=== PATIENT | male | born 1950 | race Caucasian/White ===

== ENCOUNTER 2020-01-06 10:44 | Outpatient (REF) | payer OTHER, SELFPAY ==
[2020-01-06 12:40] LABS: Hemoglobin 12.7 g/dl (14.0-18.0)
[2020-01-06 12:41] LABS: Hematocrit 37.7 % (42-52)
[2020-01-06 13:11] LABS: Albumin Level 3.6 g/dL (3.5-5.0); Calcium 9.1 mg/dL (8.4-10.2)
[2020-01-06 13:41] LABS: Prostate Specific Antigen 0.46 ng/mL (<0.05-4.0)
[2020-01-07 21:42] LABS: Sex Hormone Binding Globulin 147 nmol/L (22-77)
[2020-01-08 12:02] LABS: Calcium (PTHI) 9.4 mg/dL (8.6-10.3); PTHI 29 pg/mL (14-64)
[2020-01-12 18:12] LABS: Testosterone, Free 76.8 pg/mL (30.0-135.0); Testosterone, Total 1164 ng/dL (250-1100)
== END 2020-01-06 10:45 | disposition home or self-care (01) ==
LOC: HO.LAB 10:44
PROVIDERS: PCP Internal Medicine; Visit Provider Internal Medicine
DX: E23.0 Hypopituitarism (principal); E55.9 Vitamin D deficiency, unspecified; M81.0 Age-related osteoporosis without current pathological fracture
CPT/HCPCS: 36415; 82040; 82306; 82310; 83970; 84153; 84270; 84402; 84403; 85014; 85018

== ENCOUNTER → 2020-01-11 09:51 | Outpatient (BNVA) | payer OTHER, SELFPAY | PROVIDERS: PCP Internal Medicine; Referring Provider Internal Medicine; Visit Provider Internal Medicine | DX: Z76.89 Persons encountering health services in other specified circumstances (principal) ==

== ENCOUNTER → 2020-02-08 12:23 | Outpatient (BNVA) | payer OTHER, SELFPAY | PROVIDERS: PCP Internal Medicine; Visit Provider Internal Medicine | DX: Z13.89 Encounter for screening for other disorder (principal) ==

== ENCOUNTER → 2020-02-22 09:26 | Outpatient (BNVA) | payer OTHER, SELFPAY | PROVIDERS: PCP Internal Medicine; Visit Provider Internal Medicine | DX: Z13.89 Encounter for screening for other disorder (principal) ==

== ENCOUNTER 2020-03-25 11:15 | Outpatient (REF) | payer OTHER, SELFPAY ==
[2020-03-25 12:02] LABS: Hematocrit 40.9 % (42-52); Hemoglobin 13.4 g/dl (14.0-18.0)
[2020-03-25 12:29] LABS: Albumin Level 3.8 g/dL (3.5-5.0); Calcium 9.3 mg/dL (8.4-10.2); Cholesterol 171 mg/dL; Estimated Glomerular Filt Rate 53; HDL Cholesterol 66 mg/dL; LDL Cholesterol Calculated 63 mg/dl; Phosphorus 3.1 mg/dL (2.7-4.5); Triglycerides 210 mg/dL
[2020-03-25 12:50] LABS: Prostate Specific Antigen 0.66 ng/mL (<0.05-4.0); Vitamin D 25-OH Total 44.8 ng/mL (>30)
[2020-03-26 11:02] LABS: LDL Cholesterol Direct 72 mg/dL (<100)
[2020-03-28 17:43] LABS: Calcium (PTHI) 9.5 mg/dL (8.6-10.3); PTHI 53 pg/mL (14-64)
[2020-03-28 18:07] LABS: Sex Hormone Binding Globulin 160 nmol/L (22-77)
[2020-03-31 13:33] LABS: Testosterone, Free 96.7 pg/mL (30.0-135.0); Testosterone, Total 1444 ng/dL (250-1100)
== END 2020-03-25 11:16 | disposition home or self-care (01) ==
LOC: HO.LAB 11:15
PROVIDERS: PCP Internal Medicine; Visit Provider Internal Medicine
DX: M81.0 Age-related osteoporosis without current pathological fracture (principal); E23.0 Hypopituitarism; E55.9 Vitamin D deficiency, unspecified; Z12.5 Encounter for screening for malignant neoplasm of prostate
CPT/HCPCS: 36415; 80061; 82040; 82306; 82310; 82565; 83721; 83970; 84100; 84153; 84270; 84402; 84403; 85014; 85018

== ENCOUNTER → 2020-04-13 08:43 | Outpatient (BNVA) | payer OTHER, SELFPAY | PROVIDERS: PCP Internal Medicine; Visit Provider Internal Medicine ==

== ENCOUNTER 2020-05-13 08:03 | Outpatient (REF) | payer MEDICARE, MEDICAID, SELFPAY ==
--- NOTE | ~2020-05-13 | MM_ITS ---
EXAMINATION: BONE DENSITOMETRY CLINICAL INDICATION: Osteoporosis. COMPARISON: Baseline BD dated 05/22/2018. Lumbar radiographs 06/03/2018. TECHNIQUE: Using a [employer] DXA System (software version: 13.1) manufactured by [employer], dual-energy x-ray absorptiometry was performed of the lumbar spine and left hip. The images are of good technical quality. Summary results are attached. FINDINGS: AP SPINE L3-L4: The data for L1 and L2 are excluded due to vertebral compression fractures at these levels as seen on lumbar radiographs. Current: BMD 1.199 g/cm2, Z-score 0.7, T-score -0.3, normal, 17.7% increase from baseline (<5% change is not significant). Baseline: BMD 1.019 g/cm2. LEFT FEMUR, NECK: Current: BMD 0.617 g/cm2, Z-score -1.9, T-score -3.5, osteoporosis. Baseline: BMD 0.578 g/cm2. LEFT FEMUR, TOTAL: Current: BMD 0.695 g/cm2, Z-score -1.8, T-score -2.8, osteoporosis, 4.8% increase from baseline (<5% change is not significant). Baseline: BMD 0.663 g/cm2. IDENTIFIED RISK FACTORS: Height loss, alcohol (3 or more units per day), history of fracture (adult), osteoporosis, tobacco use (current smoker). HISTORY OF FRACTURE: Lumbar spine compression fractures. MEDICATIONS: Calcium, vitamin D. MM/XR DEXA axial skeleton IMPRESSION: 1. DIAGNOSIS: Severe osteoporosis based on the lowest T-score value of -3.5 in the femoral neck and history of lumbar compression fracture applying World Health Organization criteria. 2. 10-YEAR FRACTURE RISK PREDICTION, FRAX: Major osteoporotic fracture (clinical spine, forearm, hip or shoulder) 31.2%. Hip fracture 21.5%. 3. Treatment Recommendations: NOF guidelines recommend consideration for treatment in postmenopausal women and men age 50 and older presenting with the following: -A hip or vertebral (clinical or morphometric) fracture. -T-score less than or equal to -2.5 at the femoral neck or spine after appropriate evaluation to exclude secondary causes. -Low bone mass at the hip or spine and a 10-year fracture probability by FRAX of greater than or equal to 3% for hip fracture or greater than or equal to 20% for major osteoporotic fracture based on the [place] adapted WHO algorithm. 4. Other Recommendations: All treatment decisions require clinical judgment and consideration of individual patient factors, including patient preferences, comorbidities, previous drug use, risk factors not captured in the FRAX model (e.g. frailty, falls, vitamin D deficiency, increased bone turnover, interval significant decline in bone density) and possible under or overestimation of fracture risk by FRAX. Additional medical evaluation for secondary cause of low bone mineral density may be appropriate. FUTURE SCAN RECOMMENDATION: People with diagnosed cases of osteoporosis or at high risk for fracture should have regular bone mineral density tests. For patients eligible for Medicare, routine testing is allowed once every 2 years. The testing frequency can be increased to one year for patients who have rapidly progressing disease, those who are receiving or discontinuing medical therapy to restore bone mass, or have additional risk factors.
== END 2020-05-13 08:04 | disposition home or self-care (01) ==
LOC: HO.MAMMO 08:03
PROVIDERS: Visit Provider Internal Medicine
DX: M81.0 Age-related osteoporosis without current pathological fracture (principal); Z79.899 Other long term (current) drug therapy; F17.200 Nicotine dependence, unspecified, uncomplicated
CPT/HCPCS: 77080

== ENCOUNTER → 2020-08-18 11:41 | Outpatient (BNVA) | payer MEDICARE, MEDICAID, SELFPAY | PROVIDERS: PCP Internal Medicine; Visit Provider Internal Medicine | DX: Z13.89 Encounter for screening for other disorder (principal) | CPT/HCPCS: Q3014 ==

== ENCOUNTER 2020-08-19 11:56 | Outpatient (REF) | payer MEDICARE, MEDICAID, SELFPAY ==
[2020-08-19 13:37] LABS: Hematocrit 38.4 % (42-52); Hemoglobin 12.7 g/dl (14.0-18.0)
[2020-08-19 14:06] LABS: Alanine Aminotransferase 40 U/L (0-40); Albumin Level 3.8 g/dL (3.5-5.0); Alkaline Phosphatase 173 U/L (39-117); Anion Gap 12 (12-20); Aspartate Amino Transferase 37 U/L (5-37); Bilirubin Total 0.9 mg/dL (0.0-1.0); Blood Urea Nitrogen 20 mg/dL (9-16); Calcium 9.5 mg/dL (8.4-10.2); Carbon Dioxide 28 mmol/L (22-29); Chloride 101 mmol/L (96-108); Estimated Glomerular Filt Rate > 60; Glucose Random 91 mg/dL (60-115); Phosphorus 2.5 mg/dL (2.7-4.5); Potassium 4.1 mmol/L (3.3-5.1); Sodium 137 mmol/L (135-145); Total Protein 8.2 g/dL (6.5-8.0)
[2020-08-19 14:31] LABS: Vitamin D 25-OH Total 43.8 ng/mL (>30)
[2020-08-19 15:02] LABS: Prostate Specific Antigen 0.52 ng/mL (<0.05-4.0)
[2020-08-23 08:53] LABS: Calcium (PTHI) 9.4 mg/dL (8.6-10.3); PTHI 41 pg/mL (14-64)
[2020-08-23 09:41] LABS: Sex Hormone Binding Globulin 168 nmol/L (22-77)
[2020-08-24 14:26] LABS: Testosterone, Free 74.6 pg/mL (30.0-135.0); Testosterone, Total 1165 ng/dL (250-1100)
== END 2020-08-19 11:57 | disposition home or self-care (01) ==
LOC: HO.LAB 11:56
PROVIDERS: PCP Internal Medicine; Visit Provider Internal Medicine
DX: E55.9 Vitamin D deficiency, unspecified (principal); M81.0 Age-related osteoporosis without current pathological fracture; E23.0 Hypopituitarism
CPT/HCPCS: 36415; 80053; 82306; 83970; 84100; 84153; 84270; 84402; 84403; 85014; 85018

== ENCOUNTER 2020-10-25 10:57 | Outpatient (REF) | payer MEDICARE, MEDICAID, SELFPAY ==
[2020-10-25 12:20] LABS: Alanine Aminotransferase 32 U/L (0-40); Albumin Level 3.6 g/dL (3.5-5.0); Alkaline Phosphatase 177 U/L (39-117); Anion Gap 13 (12-20); Aspartate Amino Transferase 30 U/L (5-37); Bilirubin Total 1.1 mg/dL (0.0-1.0); Blood Urea Nitrogen 18 mg/dL (9-16); Calcium 9.5 mg/dL (8.4-10.2); Carbon Dioxide 27 mmol/L (22-29); Chloride 101 mmol/L (96-108); Estimated Glomerular Filt Rate > 60; Glucose Random 91 mg/dL (60-115); Potassium 4.3 mmol/L (3.3-5.1); Sodium 137 mmol/L (135-145)
== END 2020-10-25 10:58 | disposition home or self-care (01) ==
LOC: HO.LAB 10:57
PROVIDERS: Visit Provider Internal Medicine
DX: M81.0 Age-related osteoporosis without current pathological fracture (principal)
CPT/HCPCS: 36415; 80053

== ENCOUNTER → 2020-10-27 11:11 | Outpatient (BNVA) | payer MEDICARE, MEDICAID, SELFPAY | PROVIDERS: PCP Obstetrics & Gynecology; Visit Provider Internal Medicine | CPT/HCPCS: Q3014 ==

== ENCOUNTER → 2021-05-04 11:52 | Outpatient (BNVA) | payer MEDICARE, MEDICAID, SELFPAY | PROVIDERS: PCP Obstetrics & Gynecology; Visit Provider Internal Medicine | DX: M81.0 Age-related osteoporosis without current pathological fracture (principal); E55.9 Vitamin D deficiency, unspecified; E23.0 Hypopituitarism; D89.2 Hypergammaglobulinemia, unspecified | CPT/HCPCS: Q3014 ==

== ENCOUNTER 2021-07-18 11:30 | Outpatient (REF) | payer MEDICARE, MEDICAID, SELFPAY ==
[2021-07-18 12:53] LABS: Hematocrit 38.3 % (42.0-52.0); Hemoglobin 12.3 g/dl (14.0-18.0)
[2021-07-18 13:36] LABS: Alanine Aminotransferase 38 U/L (0-40); Albumin Level 3.3 g/dL (3.5-5.0); Alkaline Phosphatase 233 U/L (39-117); Anion Gap 13 (12-20); Aspartate Amino Transferase 45 U/L (5-37); Bilirubin Total 1.1 mg/dL (0.0-1.0); Blood Urea Nitrogen 19 mg/dL (9-16); Calcium 9.3 mg/dL (8.4-10.2); Carbon Dioxide 26 mmol/L (22-29); Chloride 103 mmol/L (96-108); Cholesterol 198 mg/dL; Estimated Glomerular Filt Rate 58; Glucose Random 96 mg/dL (60-115); HDL Cholesterol 62 mg/dL; LDL Cholesterol Calculated 119 mg/dl; Phosphorus 3.5 mg/dL (2.7-4.5); Sodium 137 mmol/L (135-145); Total Protein 8.6 g/dL (6.5-8.0); Triglycerides 89 mg/dL
[2021-07-18 13:58] LABS: Prostate Specific Antigen 0.58 ng/mL (<0.05-4.0); Vitamin D 25-OH Total 43.3 ng/mL (>30)
[2021-07-19 05:07] LABS: Sex Hormone Binding Globulin 175 nmol/L (22-77)
[2021-07-19 07:01] LABS: LDL Cholesterol Direct 94 mg/dL (<100)
[2021-07-19 13:11] LABS: Calcium (PTHI) 9.3 mg/dL (8.6-10.3); PTHI 55 pg/mL (16-77)
[2021-07-26 13:12] LABS: Testosterone, Free 37.3 pg/mL (30.0-135.0); Testosterone, Total 956 ng/dL (250-1100)
== END 2021-07-18 11:31 | disposition home or self-care (01) ==
LOC: HO.LAB 11:30
PROVIDERS: PCP Internal Medicine; Visit Provider Internal Medicine
DX: Z12.5 Encounter for screening for malignant neoplasm of prostate (principal); M81.0 Age-related osteoporosis without current pathological fracture; E23.0 Hypopituitarism; E55.9 Vitamin D deficiency, unspecified
CPT/HCPCS: 36415; 80053; 80061; 82306; 83721; 83970; 84100; 84153; 84270; 84402; 84403; 85014; 85018

== ENCOUNTER → 2021-08-10 11:12 | Outpatient (BNVA) | payer MEDICARE, MEDICAID, SELFPAY | PROVIDERS: PCP Internal Medicine; Visit Provider Internal Medicine | DX: M81.0 Age-related osteoporosis without current pathological fracture (principal); E55.9 Vitamin D deficiency, unspecified; D89.2 Hypergammaglobulinemia, unspecified; E23.0 Hypopituitarism | CPT/HCPCS: Q3014 ==

== ENCOUNTER → 2023-10-23 13:54 | Outpatient (RCR) | payer OTHER, SELFPAY ==
[2019-12-28 15:10] VITALS: BP 133/73; PULSE 88; RESP 18; TEMP 36.6; O2SAT 95; BMI 25.8
--- NOTE | 2019-12-28 15:38 | PM.HEMONCCN ---
Subjective - Subjective Chief complaint: Abnormal blood work Patient: new to practice Consult date: 12/28/19 Requesting Physician: Dr. Torrez ([place]) Primary Care Provider: Federica Reed MD HPI - Consult Narrative Reason for consult: Possible MGUS Narrative: Felipe Daniel is a 69 year old male referred for evaluation of abnormal SPEP which was noted in 2019. Patient has since been diagnosed with osteoporosis and has been on Forteo, AndroGel and calcium supplementation for nearly a year. He reports improvement in his back pain. 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 Patient reports no excess fatigue, loss of appetite, fever, chills or unexplained weight loss. He has actually been feeling a little better since his treatment with AndroGel and Forteo. He is a chronic smoker, he quit drinking alcohol last year. He reports occasional tingling and numbness in his hands. He says it is for brief periods of time and alternates between the right and left hand. He denies any focal weakness or problems with gait. Review of Systems - Constitutional Reports as per HPI, Reports no additional constitutional complaints, Denies excessive sweating, Denies fever(s) - Cardiovascular Denies chest pain with activity, Denies excessive sweating, Denies irregular heart rhythm - Respiratory Denies cough, Denies dyspnea on exertion - Gastrointestinal Denies abdominal pain, Denies change in bowel habits - Musculoskeletal Denies no additional musculoskeletal complaints, Reports back pain - Neurologic Reports paresthesias - Endocrine Reports no additional endocrine complaints - Hematologic/Lymphatic Denies easy bleeding, Denies easy bruising, Denies enlarged lymph nodes Oncology Screenings - ECOG Performance Status ECOG Performance Status: 1 [facility] Medical History: Medical History (Last Updated 12/28/19 @ 15:59 by Diane Young MD) Alcoholic cirrhosis of liver Emphysema lung Hypercholesteremia Hypertension Osteoporosis Surgical History: Surgical History (Last Updated 12/28/19 @ 15:07 by Erica Skinner RN) History of appendectomy Hx of tonsillectomy Smoking status: Current every day smoker Home Medications and Allergies Home Medications Medication Instructions Recorded Confirmed Type AndroGel 12/28/19 12/28/19 History Forteo 12/28/19 History amlodipine 5 mg PO DAILY 12/28/19 12/28/19 History aspirin 81 mg PO DAILY 12/28/19 12/28/19 History calcium carbonate 650 mg PO BID 12/28/19 12/28/19 History cholecalciferol (vitamin D3) 50 mcg PO DAILY 12/28/19 12/28/19 History simvastatin 20 mg PO DAILY 12/28/19 12/28/19 History Allergies Allergy/AdvReac Type Severity Reaction Status Date / Time No Known Allergies Allergy Verified 12/28/19 15:00 Physical Exam Vital signs: Vital Signs Temp 97.8 F 12/28/19 15:10 Pulse 88 12/28/19 15:10 Resp 18 12/28/19 15:10 BP 133/73 12/28/19 15:10 Pulse Ox 95 12/28/19 15:10 Intake & Output 12/27/19 12/28/19 12/28/19 18:59 06:59 18:59 Other: Weight 66.1 kg Weight 66.1 kg - Constitutional Present: no acute distress - Routine HEENT Exam Head: Present: normal inspection Eye: Present: EOMI - Routine Neck Exam Present: full ROM. Absent: JVD, lymphadenopathy - Routine Respiratory Exam Absent: rhonchi, wheezes - Routine Cardiovascular Exam Cardiovascular: Present: RRR, S1, S2 - Routine Abdominal Exam Present: normal bowel sounds, soft - Routine Extremities Exam Absent: calf tenderness, joint swelling, pedal edema - Routine Skin Exam Present: intact. Absent: cyanosis, erythema - Routine Neurological Exam Present: alert, oriented X3 Hem/Onc Consult Result - Labs CBC & Chem 7: 12/28/19 15:40 12/28/19 15:40 Assessment and Plan (1) Serum gammaglobulin increased Status: Acute 1. This is a 69-year-old male with osteoporosis and abnormal serum protein electrophoresis noted on blood work in 2019. Gammaglobulin slightly increased with normal total protein and albumin levels. I have repeated serum protein electrophoresis and added serum immunofixation and beta 2 microglobulin levels. Patient has no constitutional symptoms. He reports feeling better since he started treatment with AndroGel and Forteo. Multiple myeloma can cause osteoporosis. Workup has been ordered and results will be discussed with the patient in a few weeks. I have also recommended smoking cessation with the patient. I thank you very much for this referral. Follow-up in 1 month.
[2019-12-28 15:50] LABS: MANUAL DIFF FLAG NO
[2019-12-28 15:56] LABS: Basophils Percent Auto 0.6 % (0-2); Eosinophils Absolute Auto 0.7 X10*3/uL (0.0-0.4); Eosinophils Percent Auto 10.6 % (0-4); Hematocrit 39.4 % (42-52); Hemoglobin 13.1 g/dl (14.0-18.0); Imm Gran Abs Auto 0.02 X10*3/uL (0.00-0.03); Imm Gran Pct Auto 0.3 % (0.0-0.4); Lymphocytes Absolute Auto 1.4 X10*3/uL (1.2-4.9); Mean Corpuscular HGB Conc 33.2 g/dl (31.0-36.0); Mean Corpuscular Hemoglobin 32.1 pg (27.0-33.0); Mean Corpuscular Volume 96.6 fL (80-98); Monocytes Absolute Auto 0.6 X10*3/uL (0.1-1.2); Monocytes Percent Auto 9.5 % (2-11); Neutrophils Absolute Auto 3.8 X10*3/uL (2.0-8.3); Platelet Count 164 X10*3/uL (160-400); Red Blood Count 4.08 X10*6/uL (4.60-5.80); Red Cell Distribution Width 13.3 % (11.0-16.0); White Blood Count 6.6 X10*3/uL (4.8-10.8)
[2019-12-28 16:24] LABS: Alanine Aminotransferase 47 U/L (0-40); Albumin Level 3.8 g/dL (3.5-5.0); Alkaline Phosphatase 174 U/L (39-117); Anion Gap 13 (12-20); Aspartate Amino Transferase 48 U/L (5-37); Bilirubin Total 0.8 mg/dL (0.0-1.0); Blood Urea Nitrogen 21 mg/dL (9-16); Calcium 8.8 mg/dL (8.4-10.2); Carbon Dioxide 26 mmol/L (22-29); Chloride 101 mmol/L (96-108); Creatinine Clr Calc Pharmacy 44.6; Estimated Glomerular Filt Rate 59; Glucose Random 98 mg/dL (60-115); Potassium 4.3 mmol/l (3.3-5.1); Sodium 136 mmol/L (135-145); Total Protein 8.2 g/dL (6.5-8.0)
[2019-12-29 17:33] LABS: Beta-2 Microglobulin, Serum 3.28 mg/L (< OR = 2.51)
[2019-12-31 11:17] LABS: Prot Elec - Albumin 3.6 g/dL (3.8-4.8); Prot Elec - Alpha1 0.2 g/dL (0.2-0.3); Prot Elec - Alpha2 0.9 g/dL (0.5-0.9); Prot Elec - Beta 1 0.5 g/dL (0.4-0.6); Prot Elec - Beta 2 0.5 g/dL (0.2-0.5); Prot Elec - Gamma 2.2 g/dL (0.8-1.7)
[2020-01-01 07:47] LABS: IgA 441 mg/dL (70-320); IgG 2272 mg/dL (600-1540); IgM 150 mg/dL (50-300)
--- NOTE | 2020-02-15 08:17 | HO.HEMONCTE1 ---
[facility] Telehealth - Telehealth Location of Provider rendering services: office Location of Patient: home Patient Identification confirmed using: Name, : Yes Telehealth Method: Telephone Patient verbally consented to billing insurance company: Yes Patient informed of any privacy concerns related to visit: Yes Medical Summary - Medical Summary Date of Service: 02/15/20 Chief complaint: Scheduled follow-up Interval History Interval history: This is a scheduled follow-up to discuss labs, tele visit today based on COVID-19 pandemic guidelines. Patient reports that he has been doing well. He is aware of elevated liver enzymes in his PCP has been monitoring it. He denies any complaints such as abdominal discomfort, nausea or change in bowel habits. No constitutional symptoms of loss of appetite or weight loss. Review of Systems - Constitutional Reports as per HPI, Reports no additional constitutional complaints - Neurologic Reports paresthesias Home Medications and Allergies Home Medications Medication Instructions Recorded Confirmed Type AndroGel 20 mg TRANSDERMAL DAILY 12/28/19 02/15/20 History amlodipine 5 mg PO DAILY 12/28/19 02/08/20 History aspirin 81 mg PO DAILY 12/28/19 02/08/20 History calcium carbonate 650 mg PO BID 12/28/19 02/08/20 History cholecalciferol (vitamin D3) 50 mcg PO DAILY 12/28/19 02/08/20 History simvastatin 20 mg PO DAILY 12/28/19 02/08/20 History Allergies Allergy/AdvReac Type Severity Reaction Status Date / Time No Known Allergies Allergy Verified 02/08/20 12:31 Exam Vital signs: Vital Signs Temp 97.8 F 12/28/19 15:10 Pulse 88 12/28/19 15:10 Resp 18 12/28/19 15:10 BP 133/73 12/28/19 15:10 Pulse Ox 95 12/28/19 15:10 Weight 66.1 kg Body Mass Index 25.8 - Constitutional Present: no acute distress - Routine HEENT Exam Head: Present: normal inspection - Routine Respiratory Exam Absent: rhonchi, wheezes - Routine Cardiovascular Exam Cardiovascular: Present: RRR, S1, S2 - Routine Abdominal Exam Present: normal bowel sounds, soft - Routine Extremities Exam Absent: calf tenderness, joint swelling, pedal edema - Routine Skin Exam Present: intact. Absent: cyanosis, erythema - Routine Neurological Exam Present: alert, oriented X3 Data - Labs CBC & Chem 7: 12/28/19 15:40 12/28/19 15:40 Labs: 12/28/19 15:40 Beta-2 Microglobulin, Serum Routine Complete Blood Count Auto Diff Routine Comprehensive Met. Panel Routine Immunofixation Pnl, Serum Routine Protein Electrophoresis, Serum Routine Laboratory Last Values WBC 6.6 X10*3/uL (4.8-10.8) 12/28/19 15:40 RBC 4.08 X10*6/uL (4.60-5.80) L 12/28/19 15:40 Hgb 13.1 g/dl (14.0-18.0) L 12/28/19 15:40 Hct 39.4 % (42-52) L 12/28/19 15:40 MCV 96.6 fL (80-98) 12/28/19 15:40 MCH 32.1 pg (27.0-33.0) 12/28/19 15:40 MCHC 33.2 g/dl (31.0-36.0) 12/28/19 15:40 RDW 13.3 % (11.0-16.0) 12/28/19 15:40 Plt Count 164 X10*3/uL (160-400) 12/28/19 15:40 MPV 11.0 fL (9.4-12.4) 12/28/19 15:40 Immature Gran % (Auto) 0.3 % (0.0-0.4) 12/28/19 15:40 Neut % (Auto) 58.0 % (45-73) 12/28/19 15:40 Lymph % (Auto) 21.0 % (20-40) 12/28/19 15:40 [place] % (Auto) 9.5 % (2-11) 12/28/19 15:40 Eos % (Auto) 10.6 % (0-4) H 12/28/19 15:40 Baso % (Auto) 0.6 % (0-2) 12/28/19 15:40 Lymph # (Auto) 1.4 X10*3/uL (1.2-4.9) 12/28/19 15:40 [place] # (Auto) 0.6 X10*3/uL (0.1-1.2) 12/28/19 15:40 Eos # (Auto) 0.7 X10*3/uL (0.0-0.4) H 12/28/19 15:40 Baso # (Auto) 0.0 X10*3/uL (0.0-0.2) 12/28/19 15:40 Abs Immat Gran (auto) 0.02 X10*3/uL (0.00-0.03) 12/28/19 15:40 Absolute Neuts (auto) 3.8 X10*3/uL (2.0-8.3) 12/28/19 15:40 Absolute Nucleated RBC 0.000 X10*3/uL (0.0-0.012) 12/28/19 15:40 Nucleated RBC % (auto) 0.0 /100WBC (0.0-0.2) 12/28/19 15:40 Sodium 136 mmol/L (135-145) 12/28/19 15:40 Potassium 4.3 mmol/l (3.3-5.1) 12/28/19 15:40 Chloride 101 mmol/L (96-108) 12/28/19 15:40 Carbon Dioxide 26 mmol/L (22-29) 12/28/19 15:40 Anion Gap 13 (12-20) 12/28/19 15:40 BUN 21 mg/dL (9-16) H 12/28/19 15:40 Creatinine 1.22 mg/dL (0.5-1.4) 12/28/19 15:40 Estim Creat Clear Calc 44.6 12/28/19 15:40 Estimated GFR 59 12/28/19 15:40 Random Glucose 98 mg/dL (60-115) 12/28/19 15:40 Calcium 8.8 mg/dL (8.4-10.2) 12/28/19 15:40 Total Bilirubin 0.8 mg/dL (0.0-1.0) 12/28/19 15:40 AST 48 U/L (5-37) H 12/28/19 15:40 ALT 47 U/L (0-40) H 12/28/19 15:40 Alkaline Phosphatase 174 U/L (39-117) H 12/28/19 15:40 Total Protein 8.2 g/dL (6.5-8.0) H 12/28/19 15:40 Total Protein (PEP) 8.0 g/dL (6.1-8.1) 12/28/19 15:40 Albumin 3.8 g/dL (3.5-5.0) 12/28/19 15:40 Albumin (PEP) 3.6 g/dL (3.8-4.8) L 12/28/19 15:40 Wdfgt-9-Pcglvkago 0.2 g/dL (0.2-0.3) 12/28/19 15:40 Yaido-6-Sotqiyaft 0.9 g/dL (0.5-0.9) 12/28/19 15:40 Riih-0-Uzcetluo 0.5 g/dL (0.4-0.6) 12/28/19 15:40 Nhgx-7-Qqsjcsem 0.5 g/dL (0.2-0.5) 12/28/19 15:40 Memt-4-Iizbxaqzdqxwo 3.28 mg/L (< OR = 2.51) H 12/28/19 15:40 Gamma Globulins 2.2 g/dL (0.8-1.7) H 12/28/19 15:40 Abnorm Protein Band 1 TNP 12/28/19 15:40 Abnorm Protein Band 2 TNP 12/28/19 15:40 Abnorm Protein Band 3 TNP 12/28/19 15:40 PEP Interpretation SEE NOTE 12/28/19 15:40 IgG Total 2272 mg/dL (600-1540) H 12/28/19 15:40 IgA Total 441 mg/dL (70-320) H 12/28/19 15:40 IgM 150 mg/dL (50-300) 12/28/19 15:40 BRIGHT Interpretation SEE NOTE 12/28/19 15:40 Progress Note: A/P (1) Serum gammaglobulin increased Status: Chronic Assessment and plan: 1. This is a 69-year-old male with osteoporosis and abnormal serum protein electrophoresis noted on blood work in 2018. Gammaglobulin slightly increased with normal total protein and albumin levels. Repeat serum protein electrophoresis in December 2019 shows polyclonal in gamma globulins. Serum immunofixation is negative for monoclonal spike. Underlying inflammation could explain these results including elevated beta 2 microglobulin level. He has no anemia, renal dysfunction or hypercalcemia. Osteoporosis probably related to hypogonadism. Rest of his lab data shows elevated liver enzymes which the patient is aware of and has been told of this previously by his PCP. All of the above results were discussed with the patient. He would now prefer to follow up with his PCP and irrigation specialist. Thank you for this referral. - Time Spent With Patient Total time spent is greater than 50% in coordination of care (as documented) at patient's floor/unit and/or counseling patient: less than 15 minutes
== END | disposition home or self-care (01) ==
LOC: HO.ONC 12-28 14:35
PROVIDERS: PCP Internal Medicine; Visit Provider Internal Medicine
DX: R79.89 Other specified abnormal findings of blood chemistry (principal); M81.0 Age-related osteoporosis without current pathological fracture; F17.200 Nicotine dependence, unspecified, uncomplicated; Z71.6 Tobacco abuse counseling
CPT/HCPCS: 36415; 80053; 82232; 82784; 84155; 84165; 85025; 86334; 99204